=== PATIENT | male | born 1955 | race Caucasian/White ===

== ENCOUNTER 2024-10-12 19:45 | Emergency (ER) | payer MEDICARE, OTHER ==
[~2024-10-12 19:45] MED LIST: Iopamidol 300 61% 100 ML VIAL FS ONE
[2024-10-12] MEDS ORDERED: Famotidine/PF 20 mg/2ml Vial ONE (20:48)
[2024-10-12] MEDS ORDERED: diphenhydrAMINE 50 MG/ML VIAL ONE (20:48)
[2024-10-12 20:53] LABS: #Basophils 0.10 10x3/uL (0.0-0.2); #Eosinophils Less than 0.03 10x3/uL (0.0-0.5); #Monocytes 0.43 10x3/uL (0.0-1.1); #Neutrophils 6.61 10x3/uL (1.5-8.4); %Basophils 1.2 % (0.0-2.0); %Eosinophils 0.0 % (0.0-6.0); %Lymphocytes 11.9 % (18.0-47.0); %Monocytes 5.3 % (0.0-10.0); %Neutrophils 81.2 % (40.0-75.0); Hematocrit 41.3 % (38.8-50.0); Hemoglobin 14.6 g/dL (13.5-17.5); Mean Corpuscular Hemoglobin 31.1 pg (27.0-33.0); Mean Corpuscular Volume 88.1 fL (81.2-95.1); Platelet Count 344 10x3/uL (150-450); Red Blood Cell (RBC) Count 4.69 10x6/uL (4.32-5.72); White Blood Cell (WBC) Count 8.14 10x3/uL (3.5-10.5)
[2024-10-12 21:08] LABS: ALT (SGPT) 30 U/L (Less than 45); AST (SGOT) 31 U/L (11-34); Albumin 4.1 g/dL (3.1-4.5); Alkaline Phosphatase 74 U/L (40-110); Anion Gap 15 mmol/L (10-20); BUN (Urea Nitrogen) 11 mg/dL (8.4-25.7); Bilirubin, Total 0.4 mg/dL (0.3-1.2); Calc. Creatinine Clearance 0 mL/min (70-130); Calcium 10.0 mg/dL (7.8-10.44); Carbon Dioxide 20 mmol/L (23-31); Chloride 105 mmol/L (98-107); Globulin 4.9 g/dL (2.4-3.5); Glucose 136 mg/dL (80-115); Potassium 4.4 mmol/L (3.5-5.1); Sodium 136 mmol/L (136-145)
[2024-10-12] MEDS ORDERED: Tranexamic Acid 1,000 MG/10 ML VIAL ONE (22:55)
[2024-10-12] MEDS ORDERED: Tranexamic Acid 650 MG TAB PO SCH (23:30)
== END 2024-10-12 23:47 | disposition home or self-care (01) ==
LOC: CSHERS 19:45
DX: R04.2 Hemoptysis (principal); R22.1 Localized swelling, mass and lump, neck
CPT/HCPCS: 70491; 80053; 85025; 96374; 96375; 99285; J1200; J2919; J3490; Q9967; J1308

== ENCOUNTER 2024-11-21 14:35 | Outpatient (CLI) | payer MEDICARE, OTHER ==
[2024-11-21 16:00] LABS: Hematocrit 38.2 % (38.8-50.0); Hemoglobin 12.8 g/dL (13.5-17.5); Mean Corpuscular Hemoglobin 30.3 pg (27.0-33.0); Mean Corpuscular Volume 90.3 fL (81.2-95.1); Platelet Count 285 10x3/uL (150-450); Red Blood Cell (RBC) Count 4.23 10x6/uL (4.32-5.72); White Blood Cell (WBC) Count 17.70 10x3/uL (3.5-10.5)
[2024-11-21 16:08] LABS: Anion Gap 16 mmol/L (10-20); BUN (Urea Nitrogen) 20 mg/dL (8.4-25.7); Calc. Creatinine Clearance 0 mL/min (70-130); Calcium 9.5 mg/dL (7.8-10.44); Carbon Dioxide 23 mmol/L (23-31); Chloride 99 mmol/L (98-107); Glucose 132 mg/dL (80-115); Potassium 4.2 mmol/L (3.5-5.1); Sodium 134 mmol/L (136-145)
== END 2024-11-21 14:36 | disposition home or self-care (01) ==
LOC: CSHLAB 14:35
PROVIDERS: ATTEND Surgery
DX: Z01.818 Encounter for other preprocedural examination (principal); C01 Malignant neoplasm of base of tongue
CPT/HCPCS: 80048; 85027; 93005; 93010

== ENCOUNTER 2024-11-27 05:35 | Day surgery (SDC) | payer MEDICARE, OTHER ==
[2024-11-21 15:04] VITALS: BMI 34.7
[2024-11-27] MEDS ORDERED: Bupivacaine HCl 0.5%/Epinephrine 1:200,000/PF 30 ml Vial ONE (06:37)
[2024-11-27] MEDS ORDERED: KETAMINE 100 MG/ML (5ML VIAL) ONE (06:54)
[2024-11-27] MEDS ORDERED: Bupivacaine/Epinephrine 0.25% 30 ML VIAL ONE (07:21)
[2024-11-27] MEDS ORDERED: CEFAZOLIN 1 GM VIAL ONE (08:55)
== END 2024-11-27 08:10 | disposition home or self-care (01) ==
LOC: CSHSDC 05:35
PROVIDERS: ATTEND Surgery
PROC: 0JH60WZ Insertion of Totally Implantable Vascular Access Device into Chest Subcutaneous Tissue and Fascia, Open Approach (ICD-10-PCS; principal; 2024-11-27)
DX: C01 Malignant neoplasm of base of tongue (principal); M10.9 Gout, unspecified; Z91.041 Radiographic dye allergy status; Z88.2 Allergy status to sulfonamides; Z88.1 Allergy status to other antibiotic agents; Z88.0 Allergy status to penicillin; Z79.899 Other long term (current) drug therapy
CPT/HCPCS: 36561; 71045; A6258; C1788; J0690; J1642; J2250; J2704; J3010; J3490